=== PATIENT | female | born 1950 | race Hispanic/Latino ===

== ENCOUNTER → 2018-05-31 | Outpatient (CLI) | payer MEDICARE ==
[~2018-05-31] VITALS: Ht 157.5 cm; Wt 116.6 kg
[~2018-05-31] MED LIST: REGADENOSON 0.4 MG/5 ML PF SYG IVP SCH
== END | disposition home or self-care (01) ==
LOC: SHCH 08:51
PROVIDERS: ATTEND Internal Medicine Cardiovascular Disease
DX: I20.8 Other forms of angina pectoris (principal); I10 Essential (primary) hypertension; E11.9 Type 2 diabetes mellitus without complications
CPT/HCPCS: 78452; 93017; 96374; A9500 ×2; J2785

== ENCOUNTER 2022-01-04 10:32 | Inpatient (IN) | payer MEDICARE ==
[~2022-01-04] VITALS: Ht 154.9 cm; Wt 98.0 kg
[~2022-01-04 10:32] MED LIST changes: +ACET-3194 PO; +AEC81 PO; +ASCO500T19 PO; +FURO20TA4 PO; +ISOS30TA92 PO; +LISI40TA9 PO; +LORA10TA7 PO; +MONT10TA21 PO; +PRAV40TA3 PO; -REGADENOSON 0.4 MG/5 ML PF SYG IVP SCH; +THEO400T3 PO
[2022-01-04 11:09] LABS: HEMATOCRIT 38.3 % (36-48); MEAN CORPUSCULAR HEMOGLOBIN 30.3 pg (27.0-33.0); MEAN CORPUSCULAR HGB CONC 32.6 g/dL (32.0-36.0); RED BLOOD CELL COUNT(AUTO) 4.12 MIL/uL (4.00-5.50); RED CELL DISTRIBUTION WIDTH 13.9 % (11.0-15.5); WHITE BLOOD COUNT (AUTO) 28.4 K/uL (4.8-10.8)
[2022-01-04 11:15] LABS: CREATININE 0.8 mg/dL (0.5-1.5); POTASSIUM 5.4 mmol/L (3.5-5.1)
[2022-01-04 11:20] LABS: BILIRUBIN,TOTAL 0.7 mg/dL (0.2-1.0); TOTAL PROTEIN, SERUM 4.9 g/dL (6.0-8.3)
[2022-01-04 11:21] LABS: ALBUMIN 1.6 g/dL (3.5-5.0)
[2022-01-04] MEDS ORDERED: SIME80TA12 PO (11:33)
[2022-01-04] MEDS ORDERED: METO25TA6 PO (11:33)
[2022-01-04] MEDS ORDERED: PANT40TA54 PO (11:33)
[2022-01-04] MEDS ORDERED: ONDA-104 PO (11:33)
[2022-01-04] MEDS ORDERED: MIDO10TA PO (11:33)
[2022-01-04] MEDS ORDERED: DILT180C63 PO (11:33)
[2022-01-04] MEDS ORDERED: APIX5TAB PO (11:33)
[2022-01-04] MEDS ORDERED: INSLAN SQ (11:35)
[2022-01-04] MEDS ORDERED: 0.9%NACL 1000ML 1,503 ML IV ONE (12:00)
[2022-01-04] MEDS ORDERED: ZOSYN 3.375GM +NS 50ML IV ONE (12:00)
[2022-01-04 12:08] LABS: APPEARANCE,URINE Turbid (CLEAR); BILIRUBIN,URINE Negative (NEGATIVE); COLOR,URINE Yellow (YELLOW); GLUCOSE, URINE (UA) Negative (NEGATIVE); KETONES,URINE Negative (NEGATIVE); LEUKOCYTE ESTERASE ,URINE Large (NEGATIVE); NITRATE,URINE Positive (NEGATIVE); OCCULT BLOOD,URINE Negative (NEGATIVE); PH,URINE 6.5 (5.0-8.0); PROTEIN,URINE Trace mg/dL (NEGATIVE); UROBILINOGEN,URINE 0.2 mg/dL (0.2-1.0)
[2022-01-04 12:10] LABS: ABG BASE EXCESS -10.2 mmol/L (-2.0-3.0); ABG HCO3 11.7 mmol/L (21.0-28.0); ABG OXYGEN SATURATION 96.3 % (95.0-99.0); ABG PCO2 19 mmHg (32-45)
[2022-01-04 12:22] LABS: BACTERIA,URINE Many /HPF (None Seen); RBC,URINE 0-1 /HPF (0-1); WBC,URINE >100 /HPF (0-1)
[2022-01-04 12:23] LABS: AMORPHOUS SEDIMENT,UR Moderate /LPF (None Seen); RENAL EPITHELIAL CELLS,URINE Few /HPF (None Seen); TRANSITIONAL EPI CELLS,URINE Moderate /HPF (None Seen)
[2022-01-04] MEDS: 0.9%NACL 1000ML 1,000 ML IV SCH ×2 (12:30→18:52)
[2022-01-04] MEDS ORDERED: ONDANSETRON 4MG INJ IV PRN (12:30)
[2022-01-04] MEDS ORDERED: ACETAMINOPHEN 325 MG TAB PO PRN ×2 (12:30)
[2022-01-04 12:44] LABS: MAGNESIUM 1.8 mg/dL (1.80-2.40)
[2022-01-04 12:54] LABS: RETICULOCYTE % (AUTO) 1.48 % (0.42-2.23)
[2022-01-04 12:54] LABS: CREATININE,URINE RANDOM 36 mg/dL (30-135); PROTEIN,URINE RANDOM 52.5 mg/dL (0-11.9); SODIUM,URINE RANDOM < 14 mmol/l (40-220)
[2022-01-04] MEDS ORDERED: WATER FOR INJECTION,STERILE 40 ML, VANCOMYCIN 1G 2 GM PO SCH ×4 (13:00→21:00)
[2022-01-04 13:26] LABS: % IRON SATURATION 31.2 % (22-44)
[2022-01-04 13:36] LABS: THYROID STIMULATING HORMONE 0.54 uIU/mL (0.36-3.74)
[2022-01-04] MEDS ORDERED: COMPOUND NARC IV MISC 1 EACH IVSOLN MISC PRN (14:00)
[2022-01-04] MEDS ORDERED: PHARMACY COMMUNICATION MISC SCH ×4 (14:00→16:00)
[2022-01-04] MEDS: MEROPENEM 500 MG VIAL IV SCH ×2 (15:14→20:29)
[2022-01-04 16:40] LABS: INR 1.17 (0.85-1.15); PROTHROMBIN TIME 12.6 SEC (9.6-11.6)
[2022-01-04 16:42] LABS: PARTIAL THROMBOPLASTIN TIME 31.1 SEC (26.3-35.5)
[2022-01-04] MEDS: PHARMACY COMMUNICATION MISC SCH ×2 (17:00→20:29)
[2022-01-04] MEDS: WATER FOR INJECTION,STERILE 40 ML, VANCOMYCIN 1G 2 GM PO SCH ×2 (20:12)
[2022-01-04] MEDS: FAMOTIDINE 20MG VIAL IV SCH (20:29)
[2022-01-04] MEDS: NITAZOXANIDE 500 MG TAB PO SCH (20:29)
[2022-01-04 20:31] LABS: CREATININE 0.7 mg/dL (0.5-1.5); POTASSIUM 4.9 mmol/L (3.5-5.1)
[2022-01-04 22:05] VITALS: BP 107/74
[2022-01-04] MEDS ORDERED: POTA-79 PO (22:15)
[2022-01-04] MEDS ORDERED: CHOL4PAC21 PO (22:15)
[2022-01-04] MEDS ORDERED: DICL20GE TP (22:23)
[2022-01-04] MEDS ORDERED: ALBUHFA IH (22:23)
[2022-01-04 23:56] VITALS: BP 107/66
[2022-01-05] MEDS ORDERED: MORPHINE 2 MG SYG IVP PRN
[2022-01-05 04:42] VITALS: BP 139/56
[2022-01-05] MEDS: 0.9%NACL 1000ML 1,000 ML IV SCH (05:53)
[2022-01-05] MEDS: MEROPENEM 500 MG VIAL IV SCH ×3 (05:53→20:41)
[2022-01-05] MEDS: PHARMACY COMMUNICATION MISC SCH ×4 (07:35→21:00)
[2022-01-05 08:00] VITALS: BP 107/72
[2022-01-05] MEDS: FAMOTIDINE 20MG VIAL IV SCH ×2 (09:13→20:41)
[2022-01-05] MEDS: NITAZOXANIDE 500 MG TAB PO SCH ×2 (09:13→20:41)
[2022-01-05] MEDS: ENOXAPARIN SODIUM 30 MG/0.3 ML SQ SCH (09:15)
[2022-01-05] MEDS: WATER FOR INJECTION,STERILE 40 ML, VANCOMYCIN 1G 2 GM PO SCH ×8 (09:16→21:03)
[2022-01-05 09:55] LABS: BASOPHILS % (AUTO) 0.6 % (0.0-5.0); EOSINOPHILS % (AUTO) 0.1 % (0.0-8.0); HEMATOCRIT 31.5 % (36-48); LYMPHOCYTES % (AUTO) 22.2 % (21.0-51.0); MEAN CORPUSCULAR HGB CONC 33.7 g/dL (32.0-36.0); MEAN CORPUSCULAR VOLUME 92.1 fL (79-99); MONOCYTES % (AUTO) 5.8 % (3.0-13.0); NEUTROPHILS % (AUTO) 69.3 % (40.0-77.0); PLATELET COUNT (AUTO) 298 K/uL (130-400); RED BLOOD CELL COUNT(AUTO) 3.42 MIL/uL (4.00-5.50); WHITE BLOOD COUNT (AUTO) 8.1 K/uL (4.8-10.8)
[2022-01-05 10:08] LABS: CREATININE 0.5 mg/dL (0.5-1.5)
[2022-01-05 10:13] LABS: ALBUMIN 1.2 g/dL (3.5-5.0); BILIRUBIN,TOTAL 0.7 mg/dL (0.2-1.0); TOTAL PROTEIN, SERUM 3.8 g/dL (6.0-8.3)
[2022-01-05 11:36] VITALS: BP 122/45
[2022-01-05 16:55] VITALS: BP 124/48
[2022-01-05] MEDS: BACITRACIN 28.4 GM OINT TP SCH (18:08)
[2022-01-05 20:08] VITALS: BP 144/55
[2022-01-05] MEDS: BALSAM PERU/CASTOR OIL 60 GM TUBE TP SCH (20:40)
[2022-01-05] MEDS: NYSTATIN 15 GM POWDER TP SCH (20:40)
[2022-01-06 00:08] VITALS: BP 144/52
[2022-01-06] MEDS: BACITRACIN 28.4 GM OINT TP SCH ×3 (02:08→17:48)
[2022-01-06 04:12] VITALS: BP 153/45
[2022-01-06] MEDS: MEROPENEM 500 MG VIAL IV SCH (04:38)
[2022-01-06] MEDS ORDERED: 0.9% NACL 250ML 250 ML ONE (06:48)
[2022-01-06 08:00] VITALS: BP 143/88
[2022-01-06] MEDS: PHARMACY COMMUNICATION MISC SCH ×4 (09:00→21:00)
[2022-01-06] MEDS: FAMOTIDINE 20MG VIAL IV SCH ×2 (10:20→22:10)
[2022-01-06] MEDS: ENOXAPARIN SODIUM 30 MG/0.3 ML SQ SCH (10:21)
[2022-01-06] MEDS: NITAZOXANIDE 500 MG TAB PO SCH ×2 (10:21→22:10)
[2022-01-06] MEDS: NYSTATIN 15 GM POWDER TP SCH ×2 (10:22→22:12)
[2022-01-06] MEDS: WATER FOR INJECTION,STERILE 40 ML, VANCOMYCIN 1G 2 GM PO SCH ×8 (10:22→22:12)
[2022-01-06] MEDS: CEFTRIAXONE 1G VIAL IVP SCH (10:24)
[2022-01-06] MEDS: BALSAM PERU/CASTOR OIL 60 GM TUBE TP SCH ×2 (10:24→22:11)
[2022-01-06] MEDS ORDERED: 0.9%NACL 1000ML 1,000 ML IV SCH (11:30)
[2022-01-06 12:12] VITALS: BP 142/48
[2022-01-06] MEDS: SODIUM BICARBONATE 650 MG TAB PO SCH ×2 (13:28→22:10)
[2022-01-06 16:00] VITALS: BP 123/78
[2022-01-06 19:00] VITALS: BP 139/36
[2022-01-07] VITALS: BP 137/48
[2022-01-07] MEDS: BACITRACIN 28.4 GM OINT TP SCH ×3 (01:53→17:01)
[2022-01-07 04:00] VITALS: BP 177/57
[2022-01-07] MEDS: FAMOTIDINE 20MG VIAL IV SCH ×2 (08:47→21:49)
[2022-01-07] MEDS: SODIUM BICARBONATE 650 MG TAB PO SCH ×3 (08:48→21:50)
[2022-01-07] MEDS: ENOXAPARIN SODIUM 30 MG/0.3 ML SQ SCH (08:48)
[2022-01-07] MEDS: NITAZOXANIDE 500 MG TAB PO SCH (08:48)
[2022-01-07] MEDS: WATER FOR INJECTION,STERILE 40 ML, VANCOMYCIN 1G 2 GM PO SCH ×6 (08:55→21:53)
[2022-01-07] MEDS: BALSAM PERU/CASTOR OIL 60 GM TUBE TP SCH ×2 (08:55→21:52)
[2022-01-07] MEDS: NYSTATIN 15 GM POWDER TP SCH ×2 (08:57→21:51)
[2022-01-07] MEDS: PHARMACY COMMUNICATION MISC SCH ×4 (09:00→21:00)
[2022-01-07 09:58] VITALS: BP 132/39
[2022-01-07] MEDS: CEFTRIAXONE 1G VIAL IVP SCH (11:04)
[2022-01-07 11:30] VITALS: BP 164/54
[2022-01-07] MEDS ORDERED: LISINOPRIL 10 MG TABLET PO SCH (12:30)
[2022-01-07] MEDS ORDERED: AMLODIPINE 5 MG TAB PO SCH (12:30)
[2022-01-07 16:00] VITALS: BP 176/58
[2022-01-07 21:13] VITALS: BP 121/90
[2022-01-07] MEDS: CHOLESTYRAMINE PACKET 4 GM PACKET PO SCH (21:49)
[2022-01-08 00:17] VITALS: BP 98/54
[2022-01-08] MEDS: BACITRACIN 28.4 GM OINT TP SCH ×3 (02:00→17:22)
[2022-01-08 04:16] VITALS: BP 132/53
[2022-01-08 04:23] LABS: HEMATOCRIT 30.8 % (36-48); MEAN CORPUSCULAR HEMOGLOBIN 30.1 pg (27.0-33.0); MEAN CORPUSCULAR HGB CONC 33.1 g/dL (32.0-36.0); MEAN CORPUSCULAR VOLUME 90.9 fL (79-99); RED BLOOD CELL COUNT(AUTO) 3.39 MIL/uL (4.00-5.50); RED CELL DISTRIBUTION WIDTH 14.1 % (11.0-15.5); WHITE BLOOD COUNT (AUTO) 4.6 K/uL (4.8-10.8)
[2022-01-08 04:35] LABS: CREATININE 0.4 mg/dL (0.5-1.5); POTASSIUM 3.5 mmol/L (3.5-5.1)
[2022-01-08 04:38] LABS: ALBUMIN 1.2 g/dL (3.5-5.0); BILIRUBIN,TOTAL 0.4 mg/dL (0.2-1.0); MAGNESIUM 1.6 mg/dL (1.80-2.40); PHOSPHORUS 2.9 mg/dL (2.5-4.9); TOTAL PROTEIN, SERUM 3.7 g/dL (6.0-8.3)
[2022-01-08 07:56] VITALS: BP 108/73
[2022-01-08] MEDS ORDERED: VANCOMYCIN 1.25 GM/250 ML BAG 250 ML IV SCH (08:30)
[2022-01-08] MEDS ORDERED: VANCOMYCIN PROTOCOL PER PHARMACY IV PRN (08:30)
[2022-01-08] MEDS: PHARMACY COMMUNICATION MISC SCH ×4 (09:00→21:00)
[2022-01-08] MEDS: CEFTRIAXONE 1G VIAL IVP SCH (10:20)
[2022-01-08] MEDS: NYSTATIN 15 GM POWDER TP SCH ×2 (10:21→21:11)
[2022-01-08] MEDS: ENOXAPARIN SODIUM 30 MG/0.3 ML SQ SCH (10:22)
[2022-01-08] MEDS: FAMOTIDINE 20MG VIAL IV SCH ×2 (10:23→21:06)
[2022-01-08] MEDS: SODIUM BICARBONATE 650 MG TAB PO SCH ×3 (10:23→21:06)
[2022-01-08] MEDS: LISINOPRIL 10 MG TABLET PO SCH (10:24)
[2022-01-08] MEDS: CHOLESTYRAMINE PACKET 4 GM PACKET PO SCH ×2 (10:24→21:06)
[2022-01-08] MEDS: AMLODIPINE 5 MG TAB PO SCH (10:24)
[2022-01-08] MEDS: BALSAM PERU/CASTOR OIL 60 GM TUBE TP SCH ×2 (10:25→21:12)
[2022-01-08] MEDS: WATER FOR INJECTION,STERILE 40 ML, VANCOMYCIN 1G 2 GM PO SCH ×6 (10:26→17:22)
[2022-01-08 12:00] VITALS: BP 131/69
[2022-01-08] MEDS: METRONIDAZOLE 500MG/100ML BAG 100 ML IVPB SCH ×2 (13:35→21:18)
[2022-01-08 16:00] VITALS: BP 125/52
[2022-01-08] MEDS ORDERED: PHARMACY COMMUNICATION MISC SCH (18:30)
[2022-01-08] MEDS ORDERED: COMPOUND PO MISCELLANEOUS 1 EACH MISC MISC PRN (18:30)
[2022-01-08 20:53] VITALS: BP 117/76
[2022-01-08] MEDS: INSULIN HUMULIN R 100 UNIT/ML 3ML SQ SCH (21:00)
[2022-01-08] MEDS ORDERED: LIDOCAINE HCL-MPF 1% 2ML VIAL IV PRN ×2 (22:00)
[2022-01-08] MEDS ORDERED: POTASSIUM CHLORIDE 10% ELIXIR 20 MEQ/15 ML UDCUP PO PRN (22:00)
[2022-01-08] MEDS ORDERED: POTASSIUM CHLORIDE 20MEQ/100ML 100 ML IV PRN ×2 (22:00)
[2022-01-08] MEDS ORDERED: MAGNESIUM 2GM PREMIX 50ML 50 ML IV PRN (22:00)
[2022-01-08 22:34] LABS: MAGNESIUM 1.7 mg/dL (1.80-2.40); POTASSIUM 3.4 mmol/L (3.5-5.1)
[2022-01-08] MEDS: KCL 20 MEQ ERTAB PO PRN (22:52)
[2022-01-09] VITALS (7 sets, daily range): BP systolic 98–138; BP diastolic 32–76
[2022-01-09] MEDS: BACITRACIN 28.4 GM OINT TP SCH ×3 (00:30→17:50)
[2022-01-09] MEDS: KCL 20 MEQ ERTAB PO PRN (00:53)
[2022-01-09 04:23] LABS: MEAN CORPUSCULAR HEMOGLOBIN 29.5 pg (27.0-33.0); MEAN CORPUSCULAR VOLUME 92.3 fL (79-99); RED BLOOD CELL COUNT(AUTO) 3.25 MIL/uL (4.00-5.50); RED CELL DISTRIBUTION WIDTH 13.9 % (11.0-15.5); WHITE BLOOD COUNT (AUTO) 5.6 K/uL (4.8-10.8)
[2022-01-09 04:38] LABS: ALBUMIN 1.3 g/dL (3.5-5.0); BILIRUBIN,TOTAL 0.3 mg/dL (0.2-1.0); CREATININE 0.4 mg/dL (0.5-1.5); MAGNESIUM 2.2 mg/dL (1.80-2.40); POTASSIUM 3.9 mmol/L (3.5-5.1); TOTAL PROTEIN, SERUM 3.6 g/dL (6.0-8.3)
[2022-01-09] MEDS: METRONIDAZOLE 500MG/100ML BAG 100 ML IVPB SCH ×3 (05:13→21:24)
[2022-01-09] MEDS ORDERED: VANCOMYCIN 500MG+NS 100ML 100 ML IV SCH (06:00)
[2022-01-09] MEDS: VANCOMYCIN 250MG/5ML ORAL SOLUTION 40ML PO SCH ×8 (06:00→17:50)
[2022-01-09] MEDS: INSULIN HUMULIN R 100 UNIT/ML 3ML SQ SCH ×4 (06:34→21:00)
[2022-01-09] MEDS ORDERED: IRON SUCROSE COMPLEX 500 MG in 0.9% NACL 250ML 250 ML IV SCH (07:00)
[2022-01-09] MEDS ORDERED: PHARMACY COMMUNICATION MISC SCH (07:00)
[2022-01-09] MEDS: Pravastatin Sodium 40 MG PO SCH (09:00)
[2022-01-09] MEDS: PHARMACY COMMUNICATION MISC SCH (09:00)
[2022-01-09] MEDS: FAMOTIDINE 20MG VIAL IV SCH ×2 (10:17→21:14)
[2022-01-09] MEDS: CHOLESTYRAMINE PACKET 4 GM PACKET PO SCH ×2 (10:18→21:14)
[2022-01-09] MEDS: AMLODIPINE 5 MG TAB PO SCH (10:18)
[2022-01-09] MEDS: ENOXAPARIN SODIUM 30 MG/0.3 ML SQ SCH (10:18)
[2022-01-09] MEDS: LISINOPRIL 10 MG TABLET PO SCH (10:18)
[2022-01-09] MEDS: MAGNESIUM CHLORIDE 70 MG TABLET.SA PO SCH (10:18)
[2022-01-09] MEDS: CEFTRIAXONE 1G VIAL IVP SCH (10:19)
[2022-01-09] MEDS: NYSTATIN 15 GM POWDER TP SCH ×3 (10:22→21:29)
[2022-01-09] MEDS: SODIUM BICARBONATE 650 MG TAB PO SCH ×3 (10:24→21:14)
[2022-01-09] MEDS: BALSAM PERU/CASTOR OIL 60 GM TUBE TP SCH ×2 (10:27→21:00)
[2022-01-09] MEDS: LACTOBACILLUS RHAMNOSUS GG 1 EACH CAP.SPRINK PO SCH (13:28)
[2022-01-10] MEDS: VANCOMYCIN 250MG/5ML ORAL SOLUTION 40ML PO SCH ×8 (00:09→17:03)
[2022-01-10] MEDS: BACITRACIN 28.4 GM OINT TP SCH ×3 (00:30→17:02)
[2022-01-10 04:00] VITALS: BP 124/80
[2022-01-10] MEDS: METRONIDAZOLE 500MG/100ML BAG 100 ML IVPB SCH ×3 (05:14→22:25)
[2022-01-10] MEDS: INSULIN HUMULIN R 100 UNIT/ML 3ML SQ SCH ×4 (06:40→21:00)
[2022-01-10 08:17] VITALS: BP 105/67
[2022-01-10] MEDS: Pravastatin Sodium 40 MG PO SCH (09:00)
[2022-01-10] MEDS: AMLODIPINE 5 MG TAB PO SCH (09:36)
[2022-01-10] MEDS: LACTOBACILLUS RHAMNOSUS GG 1 EACH CAP.SPRINK PO SCH (09:36)
[2022-01-10] MEDS: CHOLESTYRAMINE PACKET 4 GM PACKET PO SCH ×2 (09:36→22:24)
[2022-01-10] MEDS: MAGNESIUM CHLORIDE 70 MG TABLET.SA PO SCH (09:36)
[2022-01-10] MEDS: ENOXAPARIN SODIUM 30 MG/0.3 ML SQ SCH (09:37)
[2022-01-10] MEDS: SODIUM BICARBONATE 650 MG TAB PO SCH ×3 (09:37→22:25)
[2022-01-10] MEDS: CEFTRIAXONE 1G VIAL IVP SCH (09:37)
[2022-01-10] MEDS: FAMOTIDINE 20MG VIAL IV SCH ×2 (09:37→22:25)
[2022-01-10] MEDS: LISINOPRIL 10 MG TABLET PO SCH (09:37)
[2022-01-10] MEDS: BALSAM PERU/CASTOR OIL 60 GM TUBE TP SCH ×2 (09:39→22:25)
[2022-01-10] MEDS: NYSTATIN 15 GM POWDER TP SCH ×2 (09:39→22:25)
[2022-01-10 12:00] VITALS: BP 108/54
[2022-01-10 16:00] VITALS: BP 149/49
[2022-01-10 20:00] VITALS: BP 138/48
[2022-01-11] VITALS: BP 97/55
[2022-01-11] MEDS: BACITRACIN 28.4 GM OINT TP SCH ×3 (00:27→17:36)
[2022-01-11] MEDS: VANCOMYCIN 250MG/5ML ORAL SOLUTION 40ML PO SCH ×8 (00:28→17:35)
[2022-01-11 04:00] VITALS: BP 93/52
[2022-01-11 05:00] LABS: CREATININE 0.4 mg/dL (0.5-1.5); MAGNESIUM 1.8 mg/dL (1.80-2.40); POTASSIUM 3.5 mmol/L (3.5-5.1)
[2022-01-11] MEDS: INSULIN HUMULIN R 100 UNIT/ML 3ML SQ SCH ×4 (06:46→21:00)
[2022-01-11] MEDS: METRONIDAZOLE 500MG/100ML BAG 100 ML IVPB SCH ×3 (06:47→22:50)
[2022-01-11] MEDS: Pravastatin Sodium 40 MG PO SCH (09:00)
[2022-01-11] MEDS: SODIUM BICARBONATE 650 MG TAB PO SCH ×3 (09:31→21:07)
[2022-01-11] MEDS: CHOLESTYRAMINE PACKET 4 GM PACKET PO SCH (09:31)
[2022-01-11] MEDS: CEFTRIAXONE 1G VIAL IVP SCH (09:31)
[2022-01-11] MEDS: MAGNESIUM CHLORIDE 70 MG TABLET.SA PO SCH (09:31)
[2022-01-11] MEDS: LISINOPRIL 10 MG TABLET PO SCH (09:31)
[2022-01-11] MEDS: AMLODIPINE 5 MG TAB PO SCH (09:32)
[2022-01-11] MEDS: LACTOBACILLUS RHAMNOSUS GG 1 EACH CAP.SPRINK PO SCH (09:32)
[2022-01-11] MEDS: FAMOTIDINE 20MG VIAL IV SCH ×2 (09:32→21:07)
[2022-01-11] MEDS: ENOXAPARIN SODIUM 30 MG/0.3 ML SQ SCH (09:33)
[2022-01-11] MEDS: NYSTATIN 15 GM POWDER TP SCH ×2 (09:33→21:15)
[2022-01-11] MEDS: BALSAM PERU/CASTOR OIL 60 GM TUBE TP SCH ×2 (09:34→21:16)
[2022-01-11 12:00] VITALS: BP 110/67
[2022-01-11 16:00] VITALS: BP 84/57
[2022-01-11] MEDS ORDERED: VANCOMYCIN 500MG VIAL PR SCH (19:00)
[2022-01-11 20:19] VITALS: BP 85/46
[2022-01-11] MEDS ORDERED: MIDODRINE HCL 5 MG TABLET PO PRN (20:30)
[2022-01-12 00:02] VITALS: BP 109/65
[2022-01-12] MEDS: BACITRACIN 28.4 GM OINT TP SCH ×2 (01:25→09:40)
[2022-01-12] MEDS: VANCOMYCIN 250MG/5ML ORAL SOLUTION 40ML PO SCH ×6 (01:25→12:04)
[2022-01-12 05:01] VITALS: BP 92/54
[2022-01-12] MEDS: METRONIDAZOLE 500MG/100ML BAG 100 ML IVPB SCH ×2 (07:00→14:02)
[2022-01-12] MEDS: INSULIN HUMULIN R 100 UNIT/ML 3ML SQ SCH ×2 (07:30→11:30)
[2022-01-12 07:40] VITALS: BP 119/66
[2022-01-12] MEDS: FAMOTIDINE 20MG VIAL IV SCH (09:27)
[2022-01-12] MEDS: LACTOBACILLUS RHAMNOSUS GG 1 EACH CAP.SPRINK PO SCH (09:28)
[2022-01-12] MEDS: ENOXAPARIN SODIUM 30 MG/0.3 ML SQ SCH (09:28)
[2022-01-12] MEDS: MAGNESIUM CHLORIDE 70 MG TABLET.SA PO SCH (09:28)
[2022-01-12] MEDS: AMLODIPINE 5 MG TAB PO SCH (09:29)
[2022-01-12] MEDS: LISINOPRIL 10 MG TABLET PO SCH (09:29)
[2022-01-12] MEDS: SODIUM BICARBONATE 650 MG TAB PO SCH ×2 (09:29→14:05)
[2022-01-12] MEDS: NYSTATIN 15 GM POWDER TP SCH (09:39)
[2022-01-12] MEDS: BALSAM PERU/CASTOR OIL 60 GM TUBE TP SCH (09:39)
[2022-01-12] MEDS: CEFTRIAXONE 1G VIAL IVP SCH (09:40)
[2022-01-12] MEDS ORDERED: 0.9%NACL 1000ML 1,000 ML IV SCH (10:00)
[2022-01-12 10:19] LABS: BASOPHILS % (AUTO) 0.2 % (0.0-5.0); EOSINOPHILS % (AUTO) 0.4 % (0.0-8.0); HEMATOCRIT 28.7 % (36-48); LYMPHOCYTES % (AUTO) 28.4 % (21.0-51.0); MEAN CORPUSCULAR HEMOGLOBIN 30.7 pg (27.0-33.0); MEAN CORPUSCULAR HGB CONC 33.4 g/dL (32.0-36.0); MEAN CORPUSCULAR VOLUME 91.7 fL (79-99); MONOCYTES % (AUTO) 4.5 % (3.0-13.0); NEUTROPHILS % (AUTO) 65.8 % (40.0-77.0); PLATELET COUNT (AUTO) 232 K/uL (130-400); RED BLOOD CELL COUNT(AUTO) 3.13 MIL/uL (4.00-5.50); RED CELL DISTRIBUTION WIDTH 14.2 % (11.0-15.5); WHITE BLOOD COUNT (AUTO) 5.5 K/uL (4.8-10.8)
[2022-01-12 10:36] LABS: CREATININE 0.4 mg/dL (0.5-1.5); POTASSIUM 3.3 mmol/L (3.5-5.1)
[2022-01-12 10:39] LABS: ALBUMIN 1.3 g/dL (3.5-5.0); BILIRUBIN,TOTAL 0.3 mg/dL (0.2-1.0); MAGNESIUM 1.8 mg/dL (1.80-2.40); TOTAL PROTEIN, SERUM 3.6 g/dL (6.0-8.3)
[2022-01-12 11:05] VITALS: BP 115/65
[2022-01-12] MEDS: KCL 20 MEQ ERTAB PO PRN (14:06)
[2022-01-12] MEDS ORDERED: FIDAXOMICIN 200 MG TABLET PO SCH (21:00)
[2022-01-12] MEDS ORDERED: SIMVASTATIN 20 MG TABLET PO SCH (21:00)
[2022-01-13] MEDS ORDERED: LISINOPRIL 2.5 MG TABLET PO SCH (09:00)
== END 2022-01-12 16:18 | DRG 871 ==
LOC: EDH 10:32 → EDHIP 12:23 → 4CH 20:50
PROVIDERS: ADMIT Internal Medicine; ATTEND Internal Medicine
DX: A41.9 Sepsis, unspecified organism (principal); E43 Unspecified severe protein-calorie malnutrition; A04.71 Enterocolitis due to Clostridium difficile, recurrent; N17.9 Acute kidney failure, unspecified; E87.1 Hypo-osmolality and hyponatremia; N30.00 Acute cystitis without hematuria; Z16.24 Resistance to multiple antibiotics; Z68.42 Body mass index [BMI] 45.0-49.9, adult; D64.9 Anemia, unspecified; E66.01 Morbid (severe) obesity due to excess calories; B96.20 Unspecified Escherichia coli [E. coli] as the cause of diseases classified elsewhere; B96.4 Proteus (mirabilis) (morganii) as the cause of diseases classified elsewhere; D75.839 Thrombocytosis, unspecified; E11.9 Type 2 diabetes mellitus without complications; E78.00 Pure hypercholesterolemia, unspecified; E78.5 Hyperlipidemia, unspecified; E86.0 Dehydration; E86.1 Hypovolemia; E87.5 Hyperkalemia; E87.6 Hypokalemia; G47.30 Sleep apnea, unspecified; I10 Essential (primary) hypertension; I48.91 Unspecified atrial fibrillation; L89.152 Pressure ulcer of sacral region, stage 2; Z74.01 Bed confinement status; Z82.49 Family history of ischemic heart disease and other diseases of the circulatory system; Z83.3 Family history of diabetes mellitus; Z90.710 Acquired absence of both cervix and uterus; R53.81 Other malaise
CPT/HCPCS: 36415; 36600; 51702; 71045; 74018; 74176; 80048; 80053; 80202; 81001; 82270; 82570; 82607; 82728; 82746; 82803; 82948; 82977; 83036; 83540; 83550; 83605; 83735; 83880; 83930; 83935; 84100; 84132; 84145; 84156; 84300; 84443; 84484; 85025; 85027; 85045; 85610; 85730; 87040; 87046; 87077; 87088; 87186; 87493; 92610; 93005; C1894; G0378; J0696; J1650; J1756; J2185; J2543; J3370; J3475; J3490; J7030; J7050

== ENCOUNTER → 2024-06-14 | Outpatient (CLI) | payer OTHER, MEDICARE ==
[~2024-06-14] MED LIST changes: -ACET-3194 PO; -AEC81 PO; +ALBUHFA IH; +APIX5TAB PO; -ASCO500T19 PO; +DAPA5TAB PO; +DICL20GE TP; +DILT180C63 PO; +INSLAN SQ; -ISOS30TA92 PO; -LISI40TA9 PO; +LISI5TAB21 PO; -LORA10TA7 PO; +MONT-47 PO; -MONT10TA21 PO; -THEO400T3 PO
[2024-06-14 12:38] LABS: CHOLESTEROL 152 mg/dL (<200); HDL CHOLESTEROL 48 mg/dL (35-85); LDL DIRECT 78 mg/dL (0-99); TRIGLYCERIDES 192 mg/dL (30-200)
== END | disposition home or self-care (01) ==
LOC: LAB 10:06
PROVIDERS: ATTEND Internal Medicine Cardiovascular Disease
DX: I10 Essential (primary) hypertension (principal)
CPT/HCPCS: 36415; 80061